=== PATIENT | male | born 1940 | race Two or more races ===

== ENCOUNTER 2019-04-03 16:09 | Emergency (ER) | payer MEDICARE, OTHER ==
[2019-04-03] MEDS ORDERED: KETOROLAC 15 MG INJ IM (18:22)
[2019-04-03] MEDS: ACETAMINOPHEN 325 MG TAB PO (18:36)
[2019-04-03] MEDS: traMADol 50 MG TAB PO (18:36)
== END 2019-04-03 20:40 | disposition home or self-care (01) ==
LOC: FTE 16:09
DX: S22.32XA Fracture of one rib, left side, initial encounter for closed fracture (principal); W01.0XXA Fall on same level from slipping, tripping and stumbling without subsequent striking against object, initial encounter; Y92.9 Unspecified place or not applicable
CPT/HCPCS: 71100; 99283-25

== ENCOUNTER 2019-04-17 16:08 | Inpatient (IN) | payer MEDICARE, OTHER ==
[2019-04-17 17:48] LABS: ADD MAN DIFF? NO
[2019-04-17 17:56] LABS: BASOPHILS % 0.4 % (0.0-2.0); EOSINOPHILS % 0.1 % (0.0-7.0); HEMATOCRIT 40.3 % (42.0-52.0); HEMOGLOBIN 11.7 g/dl (14.0-18.0); LYMPHOCYTES # 1.4 10^3/ul (0.8-2.9); MEAN CORPUSCULAR HEMOGLOBIN 25.4 pg (29.0-33.0); MEAN CORPUSCULAR VOLUME 87.4 fl (82.0-101.0); MEAN PLATELET VOLUME 12.7 fl (7.4-10.4); MONOCYTE # 0.8 10^3/ul (0.3-0.9); MONOCYTES % 7.7 % (0.0-11.0); NEUTROPHIL # 8.2 10^3/ul (1.6-7.5); NEUTROPHILS % 78.5 % (39.0-77.0); PLATELET COUNT 215 10^3/UL (140-415); RED BLOOD COUNT 4.61 10^6/ul (4.70-6.10); RED CELL DISTRIBUTION WIDTH 15.3 % (11.5-14.5)
[2019-04-17 17:56] LABS: WHITE BLOOD COUNT 10.4 10^3/ul (4.8-10.8)
[2019-04-17 18:16] LABS: ALANINE AMINOTRANSFERASE 12 IU/L (13-69); ALBUMIN 4.4 g/dl (3.3-4.9); ALBUMIN/GLOBULIN RATIO 1.12; ALKALINE PHOSPHATASE 118 IU/L (42-121); ANION GAP 13 (5-13); ASPARTATE AMINO TRANSFERASE 51 IU/L (15-46); BILIRUBIN,INDIRECT 0.5 mg/dl (0-1.1); BILIRUBIN,TOTAL 0.5 mg/dl (0.2-1.3); BLOOD UREA NITROGEN 79 mg/dl (7-20); CALCIUM 9.5 mg/dl (8.4-10.2); CARBON DIOXIDE 22 mmol/L (21-31); CHLORIDE 120 mmol/L (97-110); CREATININE 5.71 mg/dl (0.61-1.24); GLUCOSE 153 mg/dl (70-220); SODIUM 155 mmol/L (135-144); TOTAL PROTEIN 8.3 g/dl (6.1-8.1)
[2019-04-17 18:19] LABS: INR 2.42; PROTIME 26.4 Sec (11.9-14.9); PT RATIO 2.1
[2019-04-17 18:20] LABS: PARTIAL THROMBOPLASTIN TIME 48.4 Sec (23.0-35.0)
[2019-04-17 18:21] LABS: POTASSIUM 6.2 mmol/L (3.5-5.1)
[2019-04-17 18:25] LABS: B-TYPE NATRIURETIC PEPTIDE 613 PG/ML (0-450)
[2019-04-17 18:28] LABS: TROPONIN-I < 0.012 ng/ml (0.000-0.120)
[2019-04-17] MEDS ORDERED: DEXTROSE 50% 50 ML SYRINGE IV (19:00)
[2019-04-17] MEDS ORDERED: NACL 0.9% 3 ML SYG IV (19:00)
[2019-04-17] MEDS: DEXTROSE 50% 50 ML SYRINGE IV (19:04)
[2019-04-17] MEDS: INSULIN REGULAR, HUMAN 100 UNIT/1 ML 3ML VIAL IVP (19:05)
[2019-04-17] MEDS: SODIUM POLYSTYRENE 15 GM KIT (POWDER + SORBITOL) PO (19:06)
[2019-04-17] MEDS: SOD CHLORIDE 0.9% 500 ML IV (19:07)
[2019-04-17 19:39] LABS: URINE BLOOD (Dip) POC 2+ (NEGATIVE); URINE GLUCOSE (Dip) POC Negative (NEGATIVE); URINE KETONES (Dip) POC Negative (NEGATIVE); URINE LEUKOCYTE EST (Dip) POC Negative (NEGATIVE); URINE NITRITE (Dip) POC Negative (NEGATIVE); URINE TOTAL PROTEIN POC 1+ (NEGATIVE)
[2019-04-17 19:39] LABS: URINE PH (Dip) POC 5.5 (5.0-8.5)
[2019-04-17 19:48] LABS: ADD UMIC YES; UR ASCORBIC ACID NEGATIVE (NEGATIVE); UR BILIRUBIN (Dip) NEGATIVE (NEGATIVE); UR BLOOD (Dip) 2+ mg/dL (NEGATIVE); UR CLARITY CLEAR (CLEAR); UR COLOR YELLOW (YELLOW); UR GLUCOSE (Dip) NEGATIVE (NEGATIVE); UR KETONES (Dip) NEGATIVE (NEGATIVE); UR LEUKOCYTE ESTERASE (Dip) NEGATIVE Leu/ul (NEGATIVE); UR NITRITE (Dip) NEGATIVE (NEGATIVE); UR RBC 1 /HPF (0-5); UR SPECIFIC GRAVITY (Dip) 1.018 (1.003-1.030); UR TOTAL PROTEIN (Dip) NEGATIVE (NEGATIVE); UR UROBILINOGEN (Dip) 1+ mg/dL (NEGATIVE); UR WBC 1 /HPF (0-5)
[2019-04-17] MEDS: ALBUTEROL 0.5% (NEB) 2.5 MG/0.5 ML AMP INH (19:50)
[2019-04-17 19:52] LABS: CREATININE,URINE RANDOM 198.88 mg/dl (20-370)
[2019-04-17 19:54] LABS: SODIUM,URINE RANDOM 28 mmol/L (30-90)
[2019-04-17] MEDS: SOD CHLORIDE 0.9% 1,000 ML IV (19:56)
[2019-04-17 20:38] LABS: LACTIC ACID 2.3 mmol/L (0.5-2.0)
[2019-04-17 22:58] LABS: ANION GAP 12 (5-13); BLOOD UREA NITROGEN 81 mg/dl (7-20); CALCIUM 8.9 mg/dl (8.4-10.2); CARBON DIOXIDE 21 mmol/L (21-31); CHLORIDE 121 mmol/L (97-110); CREATININE 5.33 mg/dl (0.61-1.24); GLUCOSE 185 mg/dl (70-220); SODIUM 154 mmol/L (135-144)
[2019-04-17 23:19] LABS: LACTIC ACID 3.3 mmol/L (0.5-2.0)
[2019-04-17] MEDS: DEXTROSE 5%-0.45% NACL 1,000 ML IV (23:32)
[2019-04-18] MEDS ORDERED: GLUCOSE GEL 15 GRAM TUBE BUCCAL (00:30)
[2019-04-18] MEDS ORDERED: GLUCOSE GEL 15 GRAM TUBE PO ×2 (00:30)
[2019-04-18] MEDS ORDERED: DEXTROSE 50% 50 ML SYRINGE IV ×2 (00:30)
[2019-04-18] MEDS ORDERED: GLUCAGON 1 MG INJ IM (00:30)
[2019-04-18] MEDS: SOD CHLORIDE 0.9% 500 ML IV (00:37)
[2019-04-18] MEDS: DEXTROSE 5%-0.45% NACL 1,000 ML IV ×2 (07:00→10:30)
[2019-04-18 07:05] LABS: ADD MAN DIFF? NO
[2019-04-18 07:09] LABS: ABNORMAL IP MESSAGE 1; BASOPHILS % 0.4 % (0.0-2.0); EOSINOPHILS # 0.1 10^3/ul (0.0-0.5); EOSINOPHILS % 1.4 % (0.0-7.0); HEMOGLOBIN 9.7 g/dl (14.0-18.0); LYMPHOCYTES # 1.8 10^3/ul (0.8-2.9); LYMPHOCYTES % 19.5 % (15.0-51.0); MEAN CORPUSCULAR HEMOGLOBIN 25.9 pg (29.0-33.0); MEAN CORPUSCULAR HGB CONC 28.5 g/dl (32.0-37.0); MEAN CORPUSCULAR VOLUME 90.9 fl (82.0-101.0); MONOCYTES % 10.7 % (0.0-11.0); NEUTROPHIL # 6.1 10^3/ul (1.6-7.5); NEUTROPHILS % 67.7 % (39.0-77.0); PLATELET COUNT 155 10^3/UL (140-415); POSITIVE DIFF @See below; RED BLOOD COUNT 3.74 10^6/ul (4.70-6.10); RED CELL DISTRIBUTION WIDTH 15.3 % (11.5-14.5)
[2019-04-18 07:35] LABS: ALANINE AMINOTRANSFERASE 13 IU/L (13-69); ALBUMIN 3.2 g/dl (3.3-4.9); ALBUMIN/GLOBULIN RATIO 1.03; ALKALINE PHOSPHATASE 80 IU/L (42-121); ANION GAP 9 (5-13); ASPARTATE AMINO TRANSFERASE 48 IU/L (15-46); BILIRUBIN,INDIRECT 0.4 mg/dl (0-1.1); BILIRUBIN,TOTAL 0.4 mg/dl (0.2-1.3); BLOOD UREA NITROGEN 70 mg/dl (7-20); CALCIUM 8.3 mg/dl (8.4-10.2); CARBON DIOXIDE 24 mmol/L (21-31); CHLORIDE 122 mmol/L (97-110); CREATININE 4.39 mg/dl (0.61-1.24); GLUCOSE 183 mg/dl (70-220); POTASSIUM 4.9 mmol/L (3.5-5.1); SODIUM 155 mmol/L (135-144); TOTAL PROTEIN 6.3 g/dl (6.1-8.1)
[2019-04-18 07:50] LABS: HEMOGLOBIN A1C 6.5 % (0-5.9)
[2019-04-18] MEDS: INSULIN ASPART [NOVOLOG] 3 ML PEN SC ×4 (08:16→20:40)
[2019-04-18] MEDS: SOD CHLORIDE 0.45% 1,000 ML IV ×2 (12:45→17:26)
[2019-04-18 15:31] LABS: ANION GAP 10 (5-13); BLOOD UREA NITROGEN 63 mg/dl (7-20); CARBON DIOXIDE 22 mmol/L (21-31); CHLORIDE 117 mmol/L (97-110); CREATININE 3.43 mg/dl (0.61-1.24); GLUCOSE 139 mg/dl (70-220); POTASSIUM 4.6 mmol/L (3.5-5.1); SODIUM 149 mmol/L (135-144)
[2019-04-18] MEDS: hydrALAzine 20 MG INJ IV (22:07)
[2019-04-19] MEDS: SOD CHLORIDE 0.45% 1,000 ML IV ×4 (00:38→12:46)
[2019-04-19] MEDS ORDERED: ACCU-CHEK XX (02:00)
[2019-04-19 05:42] LABS: ADD UMIC YES; UR ASCORBIC ACID NEGATIVE (NEGATIVE); UR BACTERIA FEW /HPF (NONE SEEN); UR BILIRUBIN (Dip) NEGATIVE (NEGATIVE); UR BLOOD (Dip) 1+ mg/dL (NEGATIVE); UR CLARITY CLEAR (CLEAR); UR COLOR STRAW (YELLOW); UR GLUCOSE (Dip) NEGATIVE (NEGATIVE); UR KETONES (Dip) NEGATIVE (NEGATIVE); UR LEUKOCYTE ESTERASE (Dip) NEGATIVE Leu/ul (NEGATIVE); UR NITRITE (Dip) NEGATIVE (NEGATIVE); UR RBC 1 /HPF (0-5); UR TOTAL PROTEIN (Dip) NEGATIVE (NEGATIVE); UR UROBILINOGEN (Dip) NEGATIVE (NEGATIVE); UR WBC 1 /HPF (0-5)
[2019-04-19 06:03] LABS: SODIUM,URINE RANDOM 96 mmol/L (30-90)
[2019-04-19 06:03] LABS: CREATININE,URINE RANDOM 42.12 mg/dl (20-370)
[2019-04-19 07:03] LABS: ADD MAN DIFF? NO
[2019-04-19 07:11] LABS: BASOPHILS % 0.2 % (0.0-2.0); EOSINOPHILS # 0.3 10^3/ul (0.0-0.5); EOSINOPHILS % 3.9 % (0.0-7.0); HEMATOCRIT 32.5 % (42.0-52.0); HEMOGLOBIN 9.5 g/dl (14.0-18.0); LYMPHOCYTES # 1.6 10^3/ul (0.8-2.9); MEAN CORPUSCULAR HEMOGLOBIN 25.1 pg (29.0-33.0); MEAN CORPUSCULAR HGB CONC 29.2 g/dl (32.0-37.0); MEAN CORPUSCULAR VOLUME 85.8 fl (82.0-101.0); MEAN PLATELET VOLUME 12.9 fl (7.4-10.4); MONOCYTE # 0.7 10^3/ul (0.3-0.9); MONOCYTES % 8.7 % (0.0-11.0); NEUTROPHIL # 5.8 10^3/ul (1.6-7.5); NEUTROPHILS % 67.7 % (39.0-77.0); PLATELET COUNT 145 10^3/UL (140-415); RED BLOOD COUNT 3.79 10^6/ul (4.70-6.10); RED CELL DISTRIBUTION WIDTH 14.8 % (11.5-14.5)
[2019-04-19 07:11] LABS: WHITE BLOOD COUNT 8.5 10^3/ul (4.8-10.8)
[2019-04-19 07:31] LABS: ANION GAP 6 (5-13); BLOOD UREA NITROGEN 47 mg/dl (7-20); CALCIUM 8.2 mg/dl (8.4-10.2); CARBON DIOXIDE 21 mmol/L (21-31); CHLORIDE 115 mmol/L (97-110); CREATININE 2.62 mg/dl (0.61-1.24); GLUCOSE 106 mg/dl (70-220); PHOSPHORUS 3.1 mg/dl (2.5-4.9); POTASSIUM 4.3 mmol/L (3.5-5.1); SODIUM 142 mmol/L (135-144)
[2019-04-19] MEDS: INSULIN ASPART [NOVOLOG] 3 ML PEN SC ×4 (07:55→20:29)
[2019-04-19] MEDS: hydrALAzine 20 MG INJ IV (23:12)
[2019-04-20] MEDS: hydrALAzine 20 MG INJ IV ×3 (04:18→21:20)
[2019-04-20] MEDS: INSULIN ASPART [NOVOLOG] 3 ML PEN SC ×4 (07:55→21:00)
[2019-04-20 08:26] LABS: ANION GAP 6 (5-13); BLOOD UREA NITROGEN 31 mg/dl (7-20); CALCIUM 8.7 mg/dl (8.4-10.2); CARBON DIOXIDE 22 mmol/L (21-31); CHLORIDE 116 mmol/L (97-110); GLUCOSE 103 mg/dl (70-220); MAGNESIUM 1.9 mg/dl (1.7-2.5); PHOSPHORUS 2.7 mg/dl (2.5-4.9); POTASSIUM 4.2 mmol/L (3.5-5.1); SODIUM 144 mmol/L (135-144)
[2019-04-20 14:43] LABS: CREATININE, RANDOM URINE 45 mg/dL (20-320); MICROALBUMIN 0.9 mg/dL; MICROALBUMIN/CREATININE RATIO 20 (<30)
== END 2019-04-20 22:03 | DRG 682 ==
LOC: E/R 16:08 → TEL 18:55
DX: N17.9 Acute kidney failure, unspecified (principal); G92 Toxic encephalopathy; E87.0 Hyperosmolality and hypernatremia; E87.2 Acidosis; E86.0 Dehydration; E87.5 Hyperkalemia; R41.0 Disorientation, unspecified; I12.9 Hypertensive chronic kidney disease with stage 1 through stage 4 chronic kidney disease, or unspecified chronic kidney disease; N18.9 Chronic kidney disease, unspecified; E11.9 Type 2 diabetes mellitus without complications; Z86.718 Personal history of other venous thrombosis and embolism; Z79.01 Long term (current) use of anticoagulants
CPT/HCPCS: 36415; 70450; 71045; 76775; 80048; 80053; 81001; 81003; 82043; 82962; 83036; 83605; 83735; 83880; 84100; 84155; 84300; 84484; 85025; 85610; 85730; 87040-91; 87086; 93005; 93970; 94664; 97116; 97161; 97530; 99285-25